=== PATIENT | female | born 1980 | race Caucasian/White ===

== ENCOUNTER 2016-12-05 14:58 | Emergency (ER) | payer OTHER ==
[~2016-12-05] VITALS: Ht 167.6 cm; Wt 75.4 kg
[~2016-12-05 14:58] MED LIST: BUSP10 PO; CEPH500C3 PO; LEXA20TA PO; NOR-0.35 PO
[2016-12-05 15:12] VITALS: BP 102/70; PULSE 107; RESP 16; TEMP 99.5; O2SAT 96
[2016-12-05] MEDS ORDERED: LEXA20TA PO (15:23)
[2016-12-05] MEDS ORDERED: PENI500T PO (16:02)
[2016-12-05] MEDS ORDERED: TYLETAB34 PO (16:02)
--- NOTE | 2016-12-05 16:09 | PD ---
HPI Chief Complaint: Depression Time Seen by Provider: 15:24 Travel History International Travel<30 days: No Contact w/Intl Traveler<30days: No Traveled to known affect area: No History of Present Illness HPI This patient complains of dental pain. She also complains of feeling depressed. He had a 8 months ago. Not feeling suicidal. Doesn't feel like she is a danger to herself or her infant. She has history of depression and is on medication for it. She doesn't feel it's working well. Symptom severity is moderate. No alleviating factors. PFSH Past Medical History Hx Anticoagulant Therapy: No Anxiety: Yes Depression: Yes Cancer: No Cardiovascular Problems: No Chemotherapy: No Cerebrovascular Accident: No Diabetes: No Diminished Hearing: No Endocrine: No Genitourinary: No Immune Disorder: No Musculoskeletal: No Neurologic: No Psychiatric: No Reproductive: No Respiratory: No Immunizations Current: Yes ?: Not : 3 Para: 0 Miscarriage: 1 : 1 Past Surgical History Abdominal Surgery: No AICD: No Arteriovenous Shunt: No Cardiac Surgery: No Endocrine Surgery: No Eye Surgery: No Genitourinary Surgery: No Gynecologic Surgery: Yes (LEEP 1998, ) Hysterectomy: No Insulin Pump: No Joint Replacement: No Neurologic Surgery: No Oral Surgery: Yes (TOOTH EXTRACTION) Pacemaker: No Thoracic Surgery: No Other Surgery: Yes (MICRO DISKECTOMY 2011) Social History Alcohol Use: Yes (RARE) Tobacco Use: Yes (1/2 PPD) Substance Use: No Allergies-Medications (Allergen,Severity, Reaction): Coded Allergies: Neurontin (Verified Allergy, Severe, Swelling, 12/05/16) Reported Meds & Prescriptions Reported Meds & Active Scripts Active Tylenol-Codeine #3 (Acetaminophen-Codeine) 300-30 mg Tab 1 Tab PO Q6HR NEB PRN Penicillin V Potassium 500 Mg Tab 500 Mg PO Q8H Reported Lexapro (Escitalopram Oxalate) 20 Mg Tab 20 Mg PO DAILY Review of Systems General / Constitutional: No: Fever HENT: No: Headaches Cardiovascular: No: Chest Pain or Discomfort Physical Exam Narrative Oral cavity: Poor dentition with several rotted out molars in the left upper jaw. No gingival abscess or irritation visible SKIN: Inspection shows no rash or ulcers. Palpation shows no induration or nodules. NECK: Symmetrical appearance, midline trachea. No mass or crepitus. Thyroid without enlargement, tenderness, or mass. Psych: Depressed mood/flat affect. No suicidal ideation. No hallucination or psychosis. She seems very rational Data Data Last Documented VS Vital Signs Date Time Temp Pulse Resp B/P Pulse Ox O2 Delivery O2 Flow Rate FiO2 12/05/16 15:12 99.5 107 16 102/70 96 MDM Medical Decision Making Medical Screen Exam Complete: Yes Emergency Medical Condition: Yes Medical Record Reviewed: Yes Differential Diagnosis Depression, adjustment disorder, anxiety Narrative Course I have reviewed the patient's electronic medical record. Patient is having some depression. She is not suicidal. I offered her psychiatric screening at the main hospital and she declines but will go there if she worsens. She develops any suicidal thoughts or thoughts of harming the child she will probably go there. There is no indication for [facility] acting at this time. I wrote her some medication for pain and antibiotics for her dentition manager of application development Misti has been trying to see if she can get assistance recommendations for follow-up with psychiatry and dental. Diagnosis Primary Impression: Post- depression Additional Impression: Dental cavities Additional Instructions: The patient was advised to follow up with psychiatry and dentist and return if they worsen. The patient was warned about potential sedation for the medications they will receive on prescription. Med/Other Pt SpecificInfo: Prescription(s) given Scripts Acetaminophen-Codeine (Tylenol-Codeine #3)300-30 mg Tab1 Tab PO Q6HR NEB PRN ( PAIN SCALE 1 TO 10) #20 TAB Ref 0 Prov:Jeremiah Soto MD 12/05/16 Penicillin V Potassium 500 Mg [id number] Mg PO Q8H #20 TAB Ref 0 Prov:Jeremiah Soto MD 12/05/16 Disposition: 01 DISCHARGE HOME Condition: Stable Jeremiah Soto MD Dec 05, 2016 16:09
== END 2016-12-05 16:26 | disposition home or self-care (01) ==
LOC: PHED 14:58
DX: F53 Mental and behavioral disorders associated with the puerperium, not elsewhere classified (principal); K02.9 Dental caries, unspecified; F17.210 Nicotine dependence, cigarettes, uncomplicated
CPT/HCPCS: 99283

== ENCOUNTER 2017-04-02 14:23 | Emergency (ER) | payer OTHER ==
[~2017-04-02] VITALS: Ht 167.6 cm; Wt 72.0 kg
[~2017-04-02 14:23] MED LIST changes: -BUSP10 PO; -CEPH500C3 PO; -NOR-0.35 PO; +PENI500T PO; +TYLETAB34 PO
[2017-04-02 14:26] VITALS: BP 129/58; PULSE 84; RESP 18; TEMP 98.8; O2SAT 99
--- NOTE | 2017-04-02 20:05 | PD ---
HPI Chief Complaint: Anxiety Time Seen by Provider: 20:03 Travel History International Travel<30 days: No Contact w/Intl Traveler<30days: No Traveled to known affect area: No History of Present Illness HPI 37-year-old female came to the emergency room with history of anxiety that is progressively worsening over past 6 months. She stays home with her daughter brought her goes to work. Her daughter is 1-year-old. She does not know what to do with herself and lately has been anxious that something will happen to her daughter and she will be unable to protect her. It is not suicidal or homicidal. She is not hearing voices. She however is quite distressed by these anxiety feelings. She has history of past anxiety and used to be on Lexapro. She has tried to find a psychiatrist but has been unsuccessful. [facility] Past Medical History Narrative Medical List of her past medical, surgical, social and family history was reviewed from the nursing note. Hx Anticoagulant Therapy: No Anxiety: Yes Depression: Yes Cancer: No Cardiovascular Problems: No Chemotherapy: No Cerebrovascular Accident: No Diabetes: No Diminished Hearing: No Endocrine: No Genitourinary: No Immune Disorder: No Musculoskeletal: No Neurologic: No Psychiatric: No Reproductive: No Respiratory: No Immunizations Current: Yes : 3 Para: 0 Miscarriage: 1 : 1 Past Surgical History Abdominal Surgery: No AICD: No Arteriovenous Shunt: No Cardiac Surgery: No Endocrine Surgery: No Eye Surgery: No Genitourinary Surgery: No Gynecologic Surgery: Yes (LEEP 1998, ) Hysterectomy: No Insulin Pump: No Joint Replacement: No Neurologic Surgery: No Oral Surgery: Yes (TOOTH EXTRACTION) Pacemaker: No Thoracic Surgery: No Other Surgery: Yes (MICRO DISKECTOMY 2011) Social History Alcohol Use: Yes (RARE) Tobacco Use: Yes (1/2 PPD) Substance Use: No Allergies-Medications (Allergen,Severity, Reaction): Coded Allergies: Neurontin (Verified Allergy, Severe, Swelling, 04/02/17) Comments List of her allergies reviewed from the nursing note. Reported Meds & Prescriptions Reported Meds & Active Scripts Active Reported Lexapro (Escitalopram Oxalate) 20 Mg Tab 20 Mg PO DAILY Narrative Medication List of her home medications reviewed from the nursing note. Review of Systems Except as stated in HPI: all other systems reviewed are Neg Physical Exam Narrative GENERAL: Awake, alert, anxious and tearful SKIN: Focused skin assessment warm/dry. HEAD: Atraumatic. Normocephalic. EYES: Pupils equal and round. No scleral icterus. No injection or drainage. ENT: No nasal bleeding or discharge. Mucous membranes pink and moist. NECK: Trachea midline. No JVD. CARDIOVASCULAR: Regular rate and rhythm. No murmur appreciated. RESPIRATORY: No accessory muscle use. Clear to auscultation. Breath sounds equal bilaterally. GASTROINTESTINAL: Abdomen soft, non-tender, nondistended. Hepatic and splenic margins not palpable. MUSCULOSKELETAL: No obvious deformities. No clubbing. No cyanosis. No edema. NEUROLOGICAL: Awake and alert. No obvious cranial nerve deficits. Motor grossly within normal limits. Normal speech. PSYCHIATRIC: Appropriate mood and affect; insight and judgment normal. Data Data Last Documented VS Vital Signs Date Time Temp Pulse Resp B/P Pulse Ox O2 Delivery O2 Flow Rate FiO2 04/02/17 14:26 98.8 84 18 129/58 99 Room Air Orders Alprazolam (Xanax) (04/02/17 20:15) [facility] Medical Decision Making Medical Screen Exam Complete: Yes Emergency Medical Condition: Yes Medical Record Reviewed: Yes Differential Diagnosis Generalized anxiety disorder, anxiety Narrative Course 8:43 PM patient was given a dose of Xanax here. I gave her a choice to be kept here till the morning so that a psychiatrist could see her. However patient said that she had appointment with her child's biodiesel division manager and had to leave. No current grounds of keeping her against her will. She'll be discharged. Procedures EKG Prior to Arrival: No Diagnosis Primary Impression: Anxiety Referrals: Primary Care Physician 2 days Additional Instructions: Please return to the ER if the condition worsens or any other new concerns. Otherwise follow-up with her primary care. Med/Other Pt SpecificInfo: No Change to Meds Disposition: 01 DISCHARGE HOME Condition: Stable Colin Rosado MD April 02, 2017 20:05 Colin Rosado MD April 02, 2017 20:05
[2017-04-02] MEDS ORDERED: ALPRAZolam 0.5 MG TAB PO ONE (20:15)
== END 2017-04-02 21:01 | disposition home or self-care (01) ==
LOC: NEPD 14:23
DX: F41.9 Anxiety disorder, unspecified (principal); F32.9 Major depressive disorder, single episode, unspecified; F17.200 Nicotine dependence, unspecified, uncomplicated
CPT/HCPCS: 99283

== ENCOUNTER 2017-04-05 11:38 | Emergency (ER) | payer OTHER ==
[~2017-04-05] VITALS: Ht 167.6 cm; Wt 68.0 kg
[~2017-04-05 11:38] MED LIST changes: -PENI500T PO; -TYLETAB34 PO
[2017-04-05 11:41] VITALS: BP 111/65; PULSE 100; RESP 18; TEMP 98.5; O2SAT 97
--- NOTE | 2017-04-05 12:05 | PD ---
HPI Chief Complaint: Depression Time Seen by Provider: 11:58 Travel History International Travel<30 days: No Contact w/Intl Traveler<30days: No Traveled to known affect area: No History of Present Illness HPI Patient comes back emergency Department complaining of continued depression. Patient was seen here 3 days ago for the same but left prior to being seen by psych department secondary to needing to take her child to a appointment the following day. Patient states she was on Lexapro took her last dose 4 days ago. Patient states she's been dealing with depression for years and seemed to get worse after her . Patient denies any homicidal or suicidal ideations. Denies any history of suicide attempts. Denies any auditory or visual hallucinations. Denies any other medical concerns. Denies any chest pain, shortness breath, abdominal pain, fevers, or . PFSH Past Medical History Hx Anticoagulant Therapy: No Anxiety: Yes Depression: Yes Cancer: No Cardiovascular Problems: No Chemotherapy: No Cerebrovascular Accident: No Diabetes: No Diminished Hearing: No Endocrine: No Genitourinary: No Immune Disorder: No Musculoskeletal: No Neurologic: No Psychiatric: No Reproductive: No Respiratory: No Immunizations Current: Yes Tetanus Vaccination: < 5 Years Influenza Vaccination: Yes ?: Not LMP: 04/01/17 : 1 Para: 1 Miscarriage: 1 : 1 Past Surgical History Abdominal Surgery: No AICD: No Arteriovenous Shunt: No Cardiac Surgery: No Section: Yes Endocrine Surgery: No Eye Surgery: No Genitourinary Surgery: No Gynecologic Surgery: Yes (LEEP 1998, ) Hysterectomy: No Insulin Pump: No Joint Replacement: No Neurologic Surgery: No Oral Surgery: Yes (TOOTH EXTRACTION) Pacemaker: No Thoracic Surgery: No Other Surgery: Yes (MICRO DISKECTOMY 2011) Social History Alcohol Use: No Tobacco Use: No (ppd 30 min ago) Substance Use: Yes (marijuanna occu) Allergies-Medications (Allergen,Severity, Reaction): Coded Allergies: Neurontin (Verified Allergy, Severe, Swelling, 04/02/17) Reported Meds & Prescriptions Reported Meds & Active Scripts Active Lexapro (Escitalopram Oxalate) 20 Mg Tab 20 Mg PO DAILY Review of Systems Except as stated in HPI: all other systems reviewed are Neg Physical Exam Narrative GENERAL: Well-developed, well nourished, tearful, in no acute distress, and non- ill appearing. SKIN: Focused skin assessment warm and dry. HEAD: Atraumatic. Normocephalic. EYES: Pupils equal and round. EOMI. No scleral icterus. No injection or drainage. ENT: No nasal bleeding or discharge. Mucous membranes pink and moist. NECK: Trachea midline. Supple. No nuclear rigidity. CARDIOVASCULAR: Regular rate and rhythm. No murmur appreciated. RESPIRATORY: No accessory muscle use. No respiratory distress. Clear to auscultation. Breath sounds equal bilaterally. MUSCULOSKELETAL: No obvious deformities. No clubbing. No cyanosis. No edema. Full range of motion. NEUROLOGICAL: Awake and alert. No obvious cranial nerve deficits. Motor grossly within normal limits. Normal speech. PSYCHIATRIC: Appropriate mood and affect; insight and judgment normal. Data Data Last Documented VS Vital Signs Date Time Temp Pulse Resp B/P Pulse Ox O2 Delivery O2 Flow Rate FiO2 04/05/17 14:49 77 99 04/05/17 11:41 98.5 18 111/65 Orders Psych Screen (04/05/17 11:57) MDM Medical Decision Making Medical Screen Exam Complete: Yes Emergency Medical Condition: No Medical Record Reviewed: Yes Differential Diagnosis Depression, anxiety, depression, other Narrative Course Patient was seen and examined. Labs were reviewed from 3 days ago. Patient medically cleared for further treatment and evaluation by psych. Patient seen by psych screener was felt patient can be followed up as outpatient patient was given resources packet and a refill for Lexapro. The patient presented with chief complaint of depression. The patient is not wanting to hurt themselves or suicidal, no suicidal ideations and no recent suicidal attempts. The patient is also not wanting to hurt others and is not homicidal. The patient is appropriate and coherent and has good insight and judgment and appears to understand their illness. The patient has normal thought process and there is no evidence of psychosis. I discussed with the patient, outpatient follow up and the patient was provided with resource packet. The patient also agreed that if they did feel like hurting themselves or others that they would return here for acute assistance. The patient verbally contracted to safety and agreed with plan. I feel the patient is not a threat to self or others at this time. Patient in no obvious distress upon re-evaluation. Discussed patient with Dr. Abdul prior discharge, who is in agreement with plan of care and disposition. Patient was asked if they wanted to speak to my attending, which the patient did not wish to do at this time. Any questions/concerns in reference to patient diagnosis/condition discussed and clarified prior to patient's discharge. Reinforced sheer importance of close follow up with patient's primary physician or primary care clinic and/or psychiatry. Instructed patient to return to ED immediately, if symptoms return/worsen. Pt showed understanding of above instructions. Further instructions and recommendations were detailed in discharge paperwork. Pt ambulated without difficulty out of ED at discharge. Diagnosis Primary Impression: Depression Qualified Code: F32.9 - Depression, unspecified depression type [facility] Patient Instructions: Depression (ED), General Instructions Additional Instructions: Follow-up with your primary care physician and/or [facility] symptoms possible further evaluation of depression. Take all medication as prescribed. Return to the emergency department if symptoms get worse or for thoughts of self -harm or harm to others. Med/Other Pt SpecificInfo: Prescription(s) given Scripts Escitalopram (Lexapro)20 Mg Tab20 Mg PO DAILY #30 TAB Ref 0 Prov:Corby Abdul MD 04/05/17 Disposition: 01 DISCHARGE HOME Condition: Stable Santos Bowen April 05, 2017 12:04 Santos Bowen April 05, 2017 12:04
[2017-04-05] MEDS ORDERED: LEXA20TA PO (14:43)
== END 2017-04-05 14:57 | disposition home or self-care (01) ==
LOC: NEPD 11:38
DX: F32.9 Major depressive disorder, single episode, unspecified (principal); Z86.59 Personal history of other mental and behavioral disorders
CPT/HCPCS: 99283